=== PATIENT | male | born 1945 | race Caucasian/White ===

== ENCOUNTER 2017-09-20 12:50 | Inpatient (IN) | payer OTHER ==
[~2017-09-20] VITALS: Ht 170.2 cm; Wt 50.1 kg
[~2017-09-20 12:50] MED LIST: DAILY VITAMIN1 EAC4 PO; LO-DOSE ASPIRIN81 M2 PO; VITAMIN C250 MG PO; VITAMIN E1000 UNIT PO
[2017-09-20 14:21] LABS: HEMATOCRIT 41.7 % (38.0-50.0); HEMOGLOBIN 14.3 G/DL (12.5-16.6); MCH 33.4 PG (29.0-34.0); MCHC 34.3 G/DL (30.0-36.0); MCV 97.4 FL (86-99); PLATELET COUNT 276 K/uL (156-360); RBC DIS.WIDTH-CV 13.7 % (11.8-14.6); RBC DIS.WIDTH-SD 49.9 % (39-53); RED BLOOD COUNT 4.28 M/uL (4.00-5.50); WHITE BLOOD COUNT 9.5 K/uL (4.1-10.2)
[2017-09-20 14:29] LABS: ALBUMIN 4.2 g/dL (3.2-4.8)
[2017-09-20 14:30] LABS: CHLORIDE 99 mEq/L (99-109); POTASSIUM 4.6 mEq/L (3.7-5.4); SODIUM 137 mEq/L (136-147)
[2017-09-20 14:32] LABS: GLUCOSE 88 mg/dL (70-99); TOTAL PROTEIN 7.1 g/dL (6.4-8.3)
[2017-09-20 14:34] LABS: TOTAL BILIRUBIN 0.6 mg/dL (0.0-1.0)
[2017-09-20 14:35] LABS: ALKALINE PHOSPHATASE 71 IU/L (3-129)
[2017-09-20 14:36] LABS: CREATININE 3.9 mg/dL (0.6-1.3); GFR ESTIMATE (CALCULATED) 16 mL/min/ (58.99-99999)
[2017-09-20 14:37] LABS: AST (GOT) 16 IU/L (2-34); UREA NITROGEN (BUN) 61 mg/dL (9-23)
[2017-09-20 14:38] LABS: ALT (GPT) 9 IU/L (3-49)
[2017-09-20] MEDS ORDERED: NORVASC10 MG PO (15:23)
[2017-09-20] MEDS ORDERED: HYDROCHLOROTHIA25 MG PO (15:23)
[2017-09-20 17:16] VITALS: BP 142/79
[2017-09-20 19:45] VITALS: BP 131/87
[2017-09-20 23:37] VITALS: BP 110/86
[2017-09-21] VITALS (7 sets, daily range): BP systolic 106–131; BP diastolic 73–93
[2017-09-21 06:33] LABS: ALBUMIN 3.5 G/DL (3.2-4.8); CHLORIDE 106 MEQ/L (99-109); CREATININE 3.7 MG/DL (0.6-1.3); GFR ESTIMATE (CALCULATED) 17 mL/min/ (58.99-99999); GLUCOSE 83 mg/dL (70-99); PHOSPHORUS 3.3 mg/dL (2.5-4.9); POTASSIUM 4.1 MEQ/L (3.7-5.4); SODIUM 141 MEQ/L (136-147); UREA NITROGEN (BUN) 56 mg/dL (9-23)
[2017-09-22 03:41] VITALS: BP 114/73
[2017-09-22 04:17] LABS: UR CREATININE CONCENTRATION 33.4 MG/DL
[2017-09-22 06:18] LABS: BASOPHIL (%) 0.5 % (0-1); BASOPHIL COUNT 0.1 K/uL (0-0.1); EOSINOPHIL (%) 2.3 % (0-5); EOSINOPHIL COUNT 0.3 K/uL (0-0.3); HEMATOCRIT 38.5 % (38.0-50.0); HEMOGLOBIN 12.6 G/DL (12.5-16.6); IMMATURE GRANULOCYTE (%) 0.4 % (0.0-0.7); LYMPHOCYTE (%) 11.8 % (15-42); LYMPHOCYTE COUNT 1.3 K/uL (1.0-2.8); MCH 32.5 PG (29.0-34.0); MCHC 32.7 G/DL (30.0-36.0); MCV 99.2 FL (86-99); MONOCYTE (%) 8.5 % (3-12); NEUTROPHIL (%) 76.5 % (45-76); NEUTROPHIL COUNT 8.6 K/uL (1.8-6.4); PLATELET COUNT 197 K/uL (156-360); RBC DIS.WIDTH-CV 13.8 % (11.8-14.6); RBC DIS.WIDTH-SD 50.4 % (39-53); RED BLOOD COUNT 3.88 M/uL (4.00-5.50); WHITE BLOOD COUNT 11.2 K/uL (4.1-10.2)
[2017-09-22 06:37] LABS: ALBUMIN 3.3 G/DL (3.2-4.8); CHLORIDE 107 MEQ/L (99-109); CREATININE 3.1 MG/DL (0.6-1.3); GFR ESTIMATE (CALCULATED) 21 mL/min/ (58.99-99999); GLUCOSE 100 mg/dL (70-99); POTASSIUM 3.7 MEQ/L (3.7-5.4); SODIUM 140 MEQ/L (136-147); UREA NITROGEN (BUN) 50 mg/dL (9-23); URIC ACID 5.4 mg/dL (3.1-9.2)
[2017-09-22 06:57] VITALS: BP 132/87
[2017-09-22 11:17] VITALS: BP 119/82
[2017-09-22 16:20] VITALS: BP 110/77
[2017-09-22 19:59] VITALS: BP 117/86
[2017-09-22 23:21] VITALS: BP 120/75
[2017-09-23 06:54] LABS: ALBUMIN 2.9 G/DL (3.2-4.8); CHLORIDE 109 MEQ/L (99-109); GFR ESTIMATE (CALCULATED) 26 mL/min/ (58.99-99999); GLUCOSE 85 mg/dL (70-99); PHOSPHORUS 3.3 mg/dL (2.5-4.9); POTASSIUM 3.6 MEQ/L (3.7-5.4); SODIUM 143 MEQ/L (136-147); UREA NITROGEN (BUN) 33 mg/dL (9-23)
[2017-09-23 06:57] LABS: CREATININE 2.6 MG/DL (0.6-1.3)
[2017-09-23 07:03] VITALS: BP 123/77
[2017-09-23 11:11] VITALS: BP 129/77
[2017-09-23 17:22] VITALS: BP 122/67
[2017-09-23 22:42] LABS: BILIRUBIN NEGATIVE; BLOOD LARGE; GLUCOSE (STRIP) 50; KETONES NEGATIVE; LEUKOCYTES SMALL; NITRITE NEGATIVE; PROTEIN (STRIP) 100; SPECIFIC GRAVITY 1.009 (1.000-1.030); UROBILINOGEN 0.2 MG/DL (0.2-1.0)
[2017-09-23 22:48] LABS: APPEARANCE CLOUDY ((CLEAR)); COLOR RED ((YELLOW))
[2017-09-23 22:51] LABS: EPITHELIAL CELLS NONE SEEN /HPF; MUCUS NONE SEEN /LPF; RED BLOOD CELLS TNTC /HPF (0-5); WHITE BLOOD CELLS 0-5 /HPF (0-5)
[2017-09-23 22:52] LABS: BACTERIA NONE SEEN /HPF
[2017-09-23 23:13] VITALS: BP 122/79
[2017-09-24 07:05] LABS: BASOPHIL (%) 0.9 % (0-1); BASOPHIL COUNT 0.1 K/uL (0-0.1); EOSINOPHIL (%) 6.9 % (0-5); EOSINOPHIL COUNT 0.6 K/uL (0-0.3); HEMATOCRIT 36.7 % (38.0-50.0); IMMATURE GRANULOCYTE (%) 0.5 % (0.0-0.7); LYMPHOCYTE (%) 12.6 % (15-42); LYMPHOCYTE COUNT 1.2 K/uL (1.0-2.8); MCH 32.7 PG (29.0-34.0); MCHC 32.7 G/DL (30.0-36.0); MONOCYTE (%) 8.9 % (3-12); MONOCYTE COUNT 0.8 K/uL (0-0.8); NEUTROPHIL (%) 70.2 % (45-76); NEUTROPHIL COUNT 6.5 K/uL (1.8-6.4); PLATELET COUNT 197 K/uL (156-360); RBC DIS.WIDTH-CV 13.9 % (11.8-14.6); RBC DIS.WIDTH-SD 51.6 % (39-53); RED BLOOD COUNT 3.67 M/uL (4.00-5.50); WHITE BLOOD COUNT 9.2 K/uL (4.1-10.2)
[2017-09-24 07:31] LABS: C4 COMPLEMENT 27 MG/DL (10-40)
[2017-09-24 07:44] LABS: ALBUMIN 2.9 G/DL (3.2-4.8); CHLORIDE 112 MEQ/L (99-109); CREATININE 2.4 MG/DL (0.6-1.3); GFR ESTIMATE (CALCULATED) 28 mL/min/ (58.99-99999); GLUCOSE 98 mg/dL (70-99); MAGNESIUM 1.4 mg/dl (1.3-2.7); PHOSPHORUS 2.5 mg/dL (2.5-4.9); POTASSIUM 4.4 MEQ/L (3.7-5.4); SODIUM 144 MEQ/L (136-147); UREA NITROGEN (BUN) 35 mg/dL (9-23)
[2017-09-24 07:48] VITALS: BP 118/75
[2017-09-24 17:11] VITALS: BP 146/88
[2017-09-24 23:36] VITALS: BP 135/79
[2017-09-25 06:58] LABS: ALBUMIN 3.2 G/DL (3.2-4.8); CHLORIDE 109 MEQ/L (99-109); CREATININE 2.4 MG/DL (0.6-1.3); GFR ESTIMATE (CALCULATED) 28 mL/min/ (58.99-99999); GLUCOSE 98 mg/dL (70-99); PHOSPHORUS 2.9 mg/dL (2.5-4.9); POTASSIUM 4.2 MEQ/L (3.7-5.4); SODIUM 144 MEQ/L (136-147); UREA NITROGEN (BUN) 41 mg/dL (9-23)
[2017-09-25 07:45] VITALS: BP 115/77
[2017-09-25 11:03] LABS: HEPATITIS B SURFACE ANTIGEN Nonreactive
[2017-09-25 11:04] LABS: HEPATITIS C ANTIBODY Nonreactive
[2017-09-25 11:05] LABS: ANTI-HEPATITIS A VIRUS (IGM) Nonreactive
[2017-09-25 11:06] LABS: ANTI-HEPATITIS B CORE (IGM) Nonreactive
[2017-09-25 16:44] VITALS: BP 114/80
[2017-09-26] VITALS: BP 129/84
[2017-09-26 06:55] LABS: ALBUMIN 3.1 G/DL (3.2-4.8); ALKALINE PHOSPHATASE 43 IU/L (3-129); ALT (GPT) 16 IU/L (3-49); AST (GOT) 12 IU/L (2-34); CHLORIDE 111 MEQ/L (99-109); CREATININE 2.2 MG/DL (0.6-1.3); GFR ESTIMATE (CALCULATED) 31 mL/min/ (58.99-99999); GLUCOSE 97 mg/dL (70-99); GLUCOSE 99 mg/dL (70-99); PHOSPHORUS 2.9 mg/dL (2.5-4.9); POTASSIUM 4.2 MEQ/L (3.7-5.4); POTASSIUM 4.4 MEQ/L (3.7-5.4); SODIUM 144 MEQ/L (136-147); SODIUM 145 MEQ/L (136-147); TOTAL BILIRUBIN 0.3 MG/DL (0.0-1.0); TOTAL PROTEIN 5.1 G/DL (6.4-8.3); UREA NITROGEN (BUN) 37 mg/dL (9-23)
[2017-09-26 07:54] VITALS: BP 130/84
[2017-09-26 15:27] LABS: HEMATOCRIT 36.2 % (38.0-50.0); HEMOGLOBIN 11.9 G/DL (12.5-16.6); MCH 33.3 PG (29.0-34.0); MCHC 32.9 G/DL (30.0-36.0); MCV 101.4 FL (86-99); PLATELET COUNT 219 K/uL (156-360); RBC DIS.WIDTH-CV 14.1 % (11.8-14.6); RBC DIS.WIDTH-SD 52.4 % (39-53); RED BLOOD COUNT 3.57 M/uL (4.00-5.50); WHITE BLOOD COUNT 8.9 K/uL (4.1-10.2)
[2017-09-26 15:55] VITALS: BP 131/85
[2017-09-26 21:39] VITALS: BP 132/82
[2017-09-26 23:30] VITALS: BP 116/73
[2017-09-26 23:42] VITALS: BP 116/73
[2017-09-27 06:15] LABS: ALBUMIN 3.1 G/DL (3.2-4.8); CHLORIDE 107 MEQ/L (99-109); CREATININE 2.1 MG/DL (0.6-1.3); GFR ESTIMATE (CALCULATED) 33 mL/min/ (58.99-99999); GLUCOSE 95 mg/dL (70-99); PHOSPHORUS 3.4 mg/dL (2.5-4.9); POTASSIUM 4.1 MEQ/L (3.7-5.4); SODIUM 142 MEQ/L (136-147); UREA NITROGEN (BUN) 33 mg/dL (9-23)
[2017-09-27 07:25] VITALS: BP 116/76
[2017-09-27] MEDS ORDERED: FINASTERIDE5 MG PO (10:17)
[2017-09-27] MEDS ORDERED: TAMSULOSIN HCL0.4 MG PO (10:17)
[2017-09-27 15:15] VITALS: BP 133/81
[2017-09-27 20:46] LABS: Neutrophil Cytoplasmic Aby Negative (Negative)
== END 2017-09-27 17:11 | disposition home or self-care (01) | DRG 694 ==
LOC: EME 12:50 → EDOF 15:15 → 5EAST 15:15 → ENRESERV 15:30 → 5EAST 16:59
PROVIDERS: Emergency Medicine; Internal Medicine; Internal Medicine Nephrology
DX: N13.30 Unspecified hydronephrosis (principal); N17.9 Acute kidney failure, unspecified; N13.8 Other obstructive and reflux uropathy; I12.9 Hypertensive chronic kidney disease with stage 1 through stage 4 chronic kidney disease, or unspecified chronic kidney disease; N18.3 Chronic kidney disease, stage 3 (moderate); F17.210 Nicotine dependence, cigarettes, uncomplicated; I71.4 Abdominal aortic aneurysm, without rupture; N40.1 Benign prostatic hyperplasia with lower urinary tract symptoms; I70.90 Unspecified atherosclerosis; J44.9 Chronic obstructive pulmonary disease, unspecified; R33.9 Retention of urine, unspecified; E87.6 Hypokalemia; I70.0 Atherosclerosis of aorta; N28.1 Cyst of kidney, acquired; Z90.49 Acquired absence of other specified parts of digestive tract; Z68.1 Body mass index [BMI] 19.9 or less, adult; Z82.49 Family history of ischemic heart disease and other diseases of the circulatory system
CPT/HCPCS: 36415; 71046; 74176; 76770; 80048; 80053; 80069; 80074; 81003; 82570; 83735; 84153; 84156; 84550; 85025; 85027; 86021 90; 86038; 86160; 86235; 99281; 99285; J7030

== ENCOUNTER → 2017-10-31 | Outpatient (CLI) | payer OTHER ==
[~2017-10-31] MED LIST changes: +FINASTERIDE5 MG PO; +HYDROCHLOROTHIA25 MG PO; +NORVASC10 MG PO; +TAMSULOSIN HCL0.4 MG PO
== END | disposition home or self-care (01) ==
LOC: CDC 14:29
DX: Z01.810 Encounter for preprocedural cardiovascular examination (principal); N40.1 Benign prostatic hyperplasia with lower urinary tract symptoms; R33.8 Other retention of urine; N31.2 Flaccid neuropathic bladder, not elsewhere classified; I49.3 Ventricular premature depolarization; R94.31 Abnormal electrocardiogram [ECG] [EKG]
CPT/HCPCS: 93000